=== PATIENT | female | born 1980 ===

== ENCOUNTER 2018-08-03 09:04 | Emergency (ER) | payer OTHER ==
[2018-08-03 09:24] VITALS: TEMP 97.5; BMI 33.1
--- NOTE | 2018-08-03 09:50 | ED PDOC ---
HPI: General Adult Time Seen by Provider: 08/03/18 09:46 Chief Complaint (Nursing): Female Genitourinary Chief Complaint (Provider): vaginal bleeding History Per: Patient (37 y/o female LMP 06/26 here with vaginal bleeding with clots notices last night 3am after intercourse. Notes mild abdominal pain. Notes decrease in vaginal bleeding but persistent.) Past Medical History Reviewed: Historical Data, Nursing Documentation, Vital Signs Vital Signs: Last Vital Signs Temp 97.5 F L 08/03/18 09:10 Pulse 69 08/03/18 09:10 Resp 18 08/03/18 09:10 BP 117/74 08/03/18 09:10 Pulse Ox 99 08/03/18 09:10 Primary Care Provider: Non [facility] Provider, - Family History Family History: States: No Known Family Hx - Allergies Allergies/Adverse Reactions: Allergies Allergy/AdvReac Type Severity Reaction Status Date / Time No Known Allergies Allergy Verified 08/03/18 09:21 Review of Systems ROS Statement: Except As Marked, All Systems Reviewed And Found Negative Physical Exam - Reviewed Nursing Documentation Reviewed: Yes Vital Signs Reviewed: Yes - Physical Exam Appears: Positive for: Well, Non-toxic, No Acute Distress Head Exam: Positive for: ATRAUMATIC, NORMAL INSPECTION, NORMOCEPHALIC Skin: Positive for: Normal Color, Warm, DRY Eye Exam: Positive for: EOMI, Normal appearance, PERRL ENT: Positive for: Normal ENT Inspection Neck: Positive for: Normal, Painless ROM Cardiovascular/Chest: Positive for: Regular Rate, Rhythm Respiratory: Positive for: CNT, Normal Breath Sounds Gastrointestinal/Abdominal: Positive for: Normal Exam, Soft Pelvic Exam: Positive for: Active Bleeding (small amount of dark vaginal bleeding. Closed cervix. ) Back: Positive for: Normal Inspection Extremity: Positive for: Normal ROM Neurological/Psych: Positive for: Awake, Alert, Normal Tone - Laboratory Results Result Diagrams: 08/03/18 09:43 08/03/18 09:43 - ECG O2 Sat by Pulse Oximetry: 99 - Progress ED Course And Treament: US TRANSVAGINAL: IMPRESSION: 1. There is a potential gestational sac within the endometrial cavity but no yolk sac or pole or even evident membrane is associated. Consider early intrauterine gestation 5 weeks 3 days gestational age though viability is not been proven. Failure is not excluded. Follow-up serial serum beta HCG analysis is advised as well as ultrasonography in 1 week. 2. 2.5 cm hypoechoic fibroid mid body anteriorly. Disposition - Clinical Impression Clinical Impression: Threatened miscarriage - Patient ED Disposition Is Patient to be Admitted: No - Disposition Disposition: Routine/Home Disposition Time: 12:35 Condition: FAIR Additional Instructions: return in 2 days for repeat beta hcg Instructions: Threatened Miscarriage
[2018-08-03 09:55] LABS: BASO % 0.5 % (0.0-2.0); EOS # 0.2 K/uL (0.0-0.7); EOS % 2.9 % (0.0-4.0); LYMPH # 1.7 K/uL (1.0-4.3); LYMPH % 22.5 % (20.0-40.0); MEAN CORPUSCULAR HEMOGLOBIN 27.8 pg (27.0-31.0); MEAN CORPUSCULAR HGB CONC 34.8 g/dL (33.0-37.0); MEAN PLATELET VOLUME 7.3 fl (7.2-11.7); MONO # 0.7 K/uL (0.0-0.8); MONO % 8.8 % (0.0-10.0); NEUT % 65.3 % (50.0-75.0); NRBC % 0.1 % (0.0-0.0); RBC 4.68 Mil/uL (3.80-5.20); RED CELL DISTRIBUTION WIDTH 14.5 % (11.5-14.5); WHITE BLOOD COUNT 7.6 K/uL (4.8-10.8)
[2018-08-03 10:23] LABS: BLOOD UREA NITROGEN 11 mg/dl (7-17); GFR NON-AFRICAN AMERICAN > 60
[2018-08-03 10:24] LABS: ALB/GLOB RATIO 1.2 (1.0-2.1); ALBUMIN 4.4 g/dL (3.5-5.0); ALT/SGPT 22 U/L (9-52); AST/SGOT 25 U/L (14-36)
--- NOTE | 2018-08-03 12:35 | US ---
Date of service: 08/03/2018 PROCEDURE: OB Pelvic Ultrasound HISTORY: abdominal pain/vag bleeding early LMP: COMPARISON: None available. FINDINGS: UTERUS: Within the endometrial cavity is a fluid collection measuring 1.2 x 1.5 x 1.1 cm with an average diameter of 1.26 cm suggestive of a potential gestational sac. This would indicate an intrauterine gestation of 5 weeks 3 days based on mean sac diameter. No pole yolk sac or amniotic membrane is appreciable at this time, despite transvaginal technique, and the differential diagnosis is early nonvisualized intrauterine gestation or demise. Uterus measures 9.2 x 7.1 x 5.7 cm. Uterus is mildly enlarged with a small hypoechoic fibroid at the mid body level anteriorly measuring 2.5 x 12.0 x 2.5 cm. [place] breaches both the sub mucus and sub serosal spaces. Remaining myometrium is unremarkable otherwise. CERVIX: Measures 3.5 cm. Long and closed. Trace fluid is identified within the endocervical canal. RIGHT OVARY: Measures 3.7 x 1.7 x 2.6 cm. No mass lesion. Normal flow. LEFT OVARY: Measures 2.4 x 2.3 x 2.1 cm. No solid mass. Normal flow. FREE FLUID: None. OTHER FINDINGS: None. IMPRESSION: 1. There is a potential gestational sac within the endometrial cavity but no yolk sac or pole or even evident membrane is associated. Consider early intrauterine gestation 5 weeks 3 days gestational age though viability is not been proven. Failure is not excluded. Follow-up serial serum beta HCG analysis is advised as well as ultrasonography in 1 week. 2. 2.5 cm hypoechoic fibroid mid body anteriorly.
[2018-08-03 12:46] VITALS: BP 122/74; PULSE 68; RESP 16
[2018-08-03 19:56] VITALS: O2SAT 99
== END 2018-08-03 12:37 | disposition home or self-care (01) ==
LOC: H.ER 09:04
DX: O20.0 Threatened abortion (principal)